=== PATIENT | female | born 1940 | race Caucasian/White ===

== ENCOUNTER 2021-05-21 03:21 | Emergency (ER) | payer MEDICARE, SELFPAY ==
--- NOTE | ~2021-05-21 | CT_ITS ---
EXAMINATION: CT abdomen pelvis w con DATE: 05/21/2021 04:25 INDICATION: Abdominal pain TECHNIQUE: Computed tomography (CT) of the abdomen and pelvis was performed with 100 cc Omnipaque 350 intravenous contrast. Automated exposure control and iterative reconstruction technique were employe d. Exam dose: 970.33 mGy-cm total exam DLP. COMPARISON: 07/01/2019 CT abdomen pelvis noncontrast examination FINDINGS: Chronic bilateral lower lobe atelectasis or more likely scarring. Chronic lingular and left lower lobe bronchiectasis. Cardiomegaly. No pericardial or pleural effusion. Moderately large hiatal hernia. Hepatic and splenic calcified granulomas consistent with old granulomatous disease. No hepatic or spl enic space-occupying mass lesion. The gallbladder is present. No bile duct dilatation is evident. No pancreatic mass lesion or calcification is evident. The adrenal glands are unremarkable. Proximal right ureteral 3 mm calculus with moderate right hydronephrosis as a result. Prominent left lower pole nephrolithiasis. 3.8 cm left lower pole exophytic renal cyst. 8 mm upper po le left renal cyst. No left ureteral calculus or left hydronephrosis. Bilateral approximately 3.2 x 4 cm ovarian or adnexal cysts. Probable posterior to centimeter uterine fibroid. There is extensive diverticulosis of the sigmoid colon; no CT evidence of diverticulitis. No bowel ob struction, bowel wall thickening, pneumatosis or intraperitoneal free air. There is calcification and tortuosity of the abdominal aorta but no abdominal aortic aneurysm. No intraperitoneal or retroperitoneal or pelvic mass lesion or adenopathy or ascites is detected. Dextroscoliosis and prominent degenerative change of the lumbar spine. Prominent degenerative spurrin g of the lower thoracic spine. IMPRESSION: 3 mm obstructing proximal right ureteral calculus with moderate right hydroureteronephro sis Left nephrolithiasis 3.8 cm lower pole exophytic left renal cyst and 8 mm upper pole left renal cyst Moderately large hiatal hernia Prominent sigmoid colon diverticulosis; no CT evidence of diverticulitis Cardiomegaly Chronic bilateral lower lobe atelectasis or more likely scarring, chronic lingular and left lower lob e bronchiectasis Reviewed, dictated and finalized at [facility]. Reviewed, dictated and finalized at [facility]. IMPRESSION: 3 mm obstructing proximal right ureteral calculus with moderate ri ght hydroureteronephrosis Left nephrolithiasis 3.8 cm lower pole exophytic left renal cyst and 8 mm upper pole left renal cyst Moderately large hiatal hernia Prominent sigmoid colon diverticulosis; no CT evidence of diverticulitis Cardiomegaly Chronic bilateral lower lobe atelectasis or more likely scarring, chronic lingu lar and left lower lobe bronchiectasis
[2021-05-21 03:26] VITALS: BP 161/75; PULSE 63; RESP 16; TEMP 36.8; O2SAT 98
--- NOTE | 2021-05-21 03:35 | ECG_ITS ---
Measurements Intervals [place] Rate: 58 P: 134 NH: 163 QRS: 136 QRSD: 132 T: 56 QT: 431 QTc: 427 Interpretive Statements SINUS BRADYCARDIA INTRAVENTRICULAR CONDUCTION DELAY BASELINE ARTIFACT- I, II, III, AVR, AVL, AVF, V1-V6 BORDERLINE ECG Electronically Signed On 05-21-2021 6:59:28 CDT by Jose Ramon Cartwright D.O.
[2021-05-21 03:52] LABS: Basophils Percent Auto 0.4 % (0.2-1.2); Eosinophils Absolute Auto 0.2 K/mm3 (0-0.3); Eosinophils Percent Auto 2.2 % (0-4.4); Hematocrit 46.1 % (37.0-47.0); Hemoglobin 14.6 g/dL (12.0-15.0); Immature Granulocyte Absolute 0.02 K/mm3 (0.00-0.031); Immature Granulocyte Percent A 0.3 % (0-0.5); Lymphocytes Absolute Auto 3.14 K/mm3 (0.9-3.2); Lymphocytes Percent Auto 42.3 % (18.3-44.2); Mean Corpuscular HGB Conc 31.7 g/dl (32-36); Mean Corpuscular Hemoglobin 30.6 pg (26-34); Mean Corpuscular Volume 96.6 fl (80-100); Mean Platelet Volume 10.4 fl (7.4-10.4); Monocytes Absolute Auto 0.8 K/mm3 (0.1-0.6); Monocytes Percent Auto 10.2 % (2.6-8.5); Neutrophils Absolute Auto 3.3 K/mm3 (1.3-6.7); Neutrophils Percent Auto 44.6 % (45.5-73.1); Platelet Count Result 202 k/mm3 (150-375); Red Blood Count 4.77 M/mm3 (4.2-5.4); Red Cell Distribution Width 14.4 % (11.5-14.5); White Blood Count 7.4 K/mm3 (4.5-10.0)
--- NOTE | 2021-05-21 03:53 | ED.GENADULT ---
HPI - General Adult General Chief complaint: Abdominal Pain Stated complaint: abd pain Time Seen by Provider: 05/21/21 03:31 History of Present Illness HPI narrative: Patient 80-year-old female presents emerged department chief complaint of abdominal pain patient reports that she is having pain in the right side of her abdomen reports this is been going on for several days. Patient reports she is had some diarrhea with this denies fever denies vomiting denies chest pain denies shortness of breath. Patient reports that it is intermittent reports that its not worsened by anything or is it improved by anything. Related Data Allergies Allergy/AdvReac Type Severity Reaction Status Date / Time No Known Allergies Allergy Verified 05/21/21 04:23 Review of Systems Review of Systems: Narrative: A 10 system review of systems was completed on the patient and is negative except for what is stated in the HPI. Nursing and ancillary documentation was reviewed. [facility] Family History Family History Father Family history of emphysema Cerebrovascular accident, Onset Age: 78 Patient's father is Sibling Patient's sister is in good health Patient's brother is in good health Mother Family history of kidney disease Family history of renal failure, Onset Age: 77 Grandparent Diabetes mellitus Social History Social History Alcohol intake: never Comments Past medical history significant for kidney stones Patient denies intra-abdominal surgery history Exam Narrative: Exam Narrative: GENERAL: Well-appearing, well-nourished, and in no acute distress. HEAD: Normocephalic, atraumatic. EYES: PERRLA and EOMI. ENT: Nares clear, no rhinorrhea or epistaxis. Mucous membranes moist. NECK: Supple. CHEST: Clear to auscultation. No respiratory distress. HEART: Regular rate and rhythm. No murmur heard. Normal peripheral pulses. ABDOMEN: Soft, tenderness to palpation in the right upper and right lower quadrant, nondistended, normal active bowel sounds. EXTREMITIES: Normal range of motion. No edema. SKIN: Warm, dry, no rash. NEURO: No focal deficits. Alert and oriented x3. PSYCH: Normal mood and affect. Course Vital Signs Vital signs: Vital Signs Temperature 36.8 C 05/21/21 03:26 Pulse Rate 63 05/21/21 03:26 Respiratory Rate 16 05/21/21 03:26 Blood Pressure 161/75 H 05/21/21 03:26 Pulse Oximetry 98 05/21/21 03:26 Temperature 36.8 C 05/21/21 03:26 Pulse Rate 54 L 05/21/21 07:05 Respiratory Rate 18 05/21/21 07:05 Blood Pressure 101/52 L 05/21/21 07:05 Pulse Oximetry 93 05/21/21 07:05 Medical Decision Making Vital Signs Vital Signs: Vital Signs Temperature 36.8 C 05/21/21 03:26 Pulse Rate 63 05/21/21 03:26 Respiratory Rate 16 05/21/21 03:26 Blood Pressure 161/75 H 05/21/21 03:26 Pulse Oximetry 98 05/21/21 03:26 Temperature 36.8 C 05/21/21 03:26 Pulse Rate 54 L 05/21/21 07:05 Respiratory Rate 18 05/21/21 07:05 Blood Pressure 101/52 L 05/21/21 07:05 Pulse Oximetry 93 05/21/21 07:05 Lab Data Result diagrams: 05/21/21 03:42 05/21/21 03:42 Labs: Lab Results 05/21/21 05/21/21 05/21/21 Range/Units 03:42 03:42 03:42 WBC 7.4 (4.5-10.0) K/mm3 RBC 4.77 (4.2-5.4) M/mm3 Hgb 14.6 (12.0-15.0) g/dL Hct 46.1 (37.0-47.0) % MCV 96.6 (80-100) fl MCH 30.6 (26-34) pg MCHC 31.7 L (32-36) g/dl RDW 14.4 (11.5-14.5) % Plt Count 202 (150-375) k/mm3 MPV 10.4 (7.4-10.4) fl Immature Gran % (Auto) 0.3 (0-0.5) % Neut % (Auto) 44.6 L (45.5-73.1) % Lymph % (Auto) 42.3 (18.3-44.2) % [place] % (Auto) 10.2 H (2.6-8.5) % Eos % (Auto) 2.2 (0-4.4) % Baso % (Auto) 0.4 (0.2-1.2) % Lymph # (Auto) 3.14 (0.9-3.2) K/mm3 [place] # (Auto) 0.8
[2021-05-21] MEDS: ONDANSETRON INJ 4 MG/2 ML VIAL IV PUSH (03:57)
[2021-05-21] MEDS: MORPHINE SULFATE (*CRX) 4 MG/ML INJ IV PUSH (03:57)
[2021-05-21] MEDS: SODIUM CHLORIDE 0.9% IV 1,000 ML 999 ML IV CONT (03:58)
[2021-05-21 04:09] LABS: Alanine Aminotransferase 10 U/L (4-35); Albumin Level 4.1 g/dL (3.5-5.1); Alkaline Phosphatase 80 U/L (38-126); Anion Gap 5 mmol/L (8-16); Aspartate Amino Transferase 26 U/L (14-36); Bilirubin,Total 0.9 mg/dL (0.2-1.3); Blood Urea Nitrogen 16 mg/dL (7-17); Calcium 9.8 mg/dL (8.4-10.2); Carbon Dioxide 32 mmol/L (22-30); Chloride 102 mmol/L (98-107); Estimated CRCL calculation 40 ml/min; Estimated Glomerular Filt Rate 60; Glucose 105 mg/dL (65-105); Lipase 163 U/L (23-300); Potassium 3.5 mmol/L (3.4-5.0); Sodium 139 mmol/L (137-145)
[2021-05-21 04:40] VITALS: BP 131/60; PULSE 76; RESP 16; O2SAT 97
[2021-05-21 05:31] LABS: Add Urine Microscopic? YES; Appearance Urine Cloudy (Clear); Bilirubin Urine Negative (Negative); Blood Urine 3+ (Negative); Color Urine Amber (Yellow); Glucose Urine UA Negative (Negative); Ketones Urine Negative (Negative); Leukocyte Esterase Ur Trace LEU/UL (Negative); Mucus Urine Few /lpf; Nitrate Urine Negative (Negative); Protein Urine 2+ mg/dL (Negative); RBC Urine >75 /hpf (0-2); Squamous Epithelial Cell Urine Rare /hpf (Few); Urobilinogen Urine Negative mg/dL (<2.0); WBC Urine 31-50 /hpf
[2021-05-21 06:06] VITALS: BP 109/47; PULSE 60; RESP 20; O2SAT 92
[2021-05-21 06:19] LABS: Troponin I < 0.012 ng/mL (0.000-0.034)
[2021-05-21 06:24] LABS: Lactic Acid Reflex 1.2 mmol/L (0.7-2.1)
[2021-05-21 07:05] VITALS: BP 101/52; PULSE 54; RESP 18; O2SAT 93
[2021-05-21 07:25] VITALS: BP 101/52; PULSE 56; RESP 17; O2SAT 92
== END 2021-05-21 07:26 | disposition home or self-care (01) ==
PROVIDERS: Emergency Provider Emergency Medicine; PCP Internal Medicine
DX: N20.0 Calculus of kidney (principal)
CPT/HCPCS: 36415; 51701; 74177; 80053; 81001; 83605; 83690; 84484; 85025; 87086; 93005; 96361; 96365; 96375; 99284; J0696; J2270; J2405; J7030; Q9967

== ENCOUNTER 2022-02-07 12:07 | Emergency (ER) | payer MEDICARE, SELFPAY ==
--- NOTE | ~2022-02-07 | XR_ITS ---
EXAMINATION: XR shoulder LT min 2V DATE: 02/07/2022 12:51 INDICATION: Left shoulder pain and decreased range of motion TECHNIQUE: AP internally and externally rotated, AP oblique externally rotated and transscapular Y vi ews of the left shoulder were obtained. COMPARISON: None FINDINGS: Oblique fracture at the lateral left clavicle with approximately 4 mm cephalad displacement of the me dial fragment. The fracture line extends to the inferior cortex near the expected footplate of the co racoclavicular ligament. No other fractures identified. Moderate osteoarthritis at the left glenohume ral and acromioclavicular joints. Old lateral left second and fourth rib fractures. Likely prominent kyphosis of the upper thoracic spine. Small calcified nodule at the left lower lung zone consistent w ith old granulomatous disease. IMPRESSION: 1. Mild displacement of and extra articular fracture at the lateral left clavicle. 2. 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 Reviewed, dictated and finalized at [facility]. IMPRESSION: 1. Mild displacement of and extra articular fracture at the lateral left clavic le. 2. 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
--- NOTE | ~2022-02-07 | XR_ITS ---
EXAMINATION: XR ankle LT min 3V DATE: 02/07/2022 12:50 INDICATION: Lateral left ankle pain post fall TECHNIQUE: Anteroposterior, oblique, mortise, and lateral views of the left ankle were obtained. COMPARISON: None. FINDINGS: Old distal fibular and medial malleolar fractures, both with internal fixation and appearing healed i n essentially anatomic alignment. Couple small corticated heterotopic ossicles near the tip the media l malleolus. No acute fractures identified. Mild polyarticular osteoarthritis at the left ankle and m ultiple joints in the mid and hindfoot. Diffuse osteopenia. Small Achilles and plantar calcaneal spur s. No left ankle joint effusion. IMPRESSION: 1. Old healed internally fixed fractures of the medial malleolus and distal left fibula. No acute oss eous abnormality. Reviewed, dictated and finalized at [facility]. IMPRESSION: 1. Old healed internally fixed fractures of the medial malleolus and distal lef t fibula. No acute osseous abnormality.
[2022-02-07 12:14] VITALS: BP 114/48; PULSE 77; RESP 12; TEMP 36.9; O2SAT 98
--- NOTE | 2022-02-07 12:22 | ED.FALL ---
HPI - Fall General Chief Complaint: Fall Stated Complaint: INJURED L SHOULDER/L ANKLE Time Seen by Provider: 02/07/22 12:22 Source: patient, family, RN notes reviewed and old records reviewed Mode of arrival: ambulatory Limitations: no limitations History of Present Illness HPI Narrative: 81-year-old female accompanied by family members with complaints of fall when she was stepping up on steps about 30 minutes ago and landed on her left shoulder and hurt her lateral left ankle also. Family members state that patient did not hit her head or lose consciousness at time of fall. Patient is alert but very hard of hearing, denies any dizziness prior to fall states she lost her balance and fell. Patient is having a lot of pain to the AC joint area of her left shoulder with increase in pain if she attempts to move her left arm. Pain is also stated to the lateral aspect of her left ankle. Patient does reside with her daughter and son-in-law. MD complaint: fall Onset (ago): minute(s) (30) Fall from: standing Fall witnessed: yes, by family Place fall occurred: other (at family's member house) Loss of consciousness: none Symptoms prior to fall: none Context: other (lost her balance) Location of injury - extremities: Left: shoulder and ankle Severity: moderate Quality: sharp Related Data Home Medications Medication Instructions Recorded Confirmed apixaban [Eliquis] 5 mg PO DAILY 02/07/22 02/07/22 metoprolol tartrate 25 mg PO DAILY 02/07/22 02/07/22 montelukast 10 mg PO DAILY 02/07/22 02/07/22 Allergies Allergy/AdvReac Type Severity Reaction Status Date / Time No Known Allergies Allergy Other Uncoded 02/07/22 12:23 Review of Systems Review of Systems: CONSTITUTIONAL: Denies fever, chills, or sweats. EYES: Denies visual changes, redness, or discharge. ENT: Denies rhinorrhea, congestion, sore throat, or otalgia. CARDIOVASCULAR: Denies chest pain, palpitations, or edema. RESPIRATORY: Denies cough or dyspnea. GASTROINTESTINAL: Denies abdominal pain, nausea, vomiting, or diarrhea. GENITOURINARY: Denies dysuria or hematuria. SKIN: Denies rash or itching. MUSCULOSKELETAL: Denies back pain,positive for left shoulder pain and left lateral ankle joint pain, or myalgia. NEUROLOGIC: Denies headache, numbness, or weakness. PSYCHIATRIC: Denies anxiety or depression, is forgetful and very hard of hearing.. All systems reviewed & are unremarkable except as noted in HPI and below PMFSH Past Medical History Medical History (Updated 02/07/22 @ 17:04 by Nichelle Hendrickson NP) Afib on Eliquis Allergic sinusitis Bladder stones Hiatal hernia History of cardioversion Hypertension Kidney stone UTI (urinary tract infection) Surgical History Surgical History (Updated 02/07/22 @ 12:29 by Nichelle Hendrickson NP) History of ankle surgery ORIF with hardware 1996 History of cataract removal with insertion of prosthetic lens bilateral Family History Family History Father Family history of emphysema Cerebrovascular accident, Onset Age: 78 Patient's father is Sibling Patient's sister is in good health Patient's brother is in good health Mother Family history of kidney disease Family history of renal failure, Onset Age: 77 Grandparent Diabetes mellitus Social History Social History (Updated 02/07/22 @ 13:00 by Nichelle Hendrickson NP) Smoking status: Never smoker Alcohol intake: never Substance use: never Living arrangements: with family Occupation/Education: retired Gender identity (if verbalized by the patient): Female Comments At time of signature, agree with nursing past medical, surgical, social and family history. There is no relevant family history pertinent to the presenting complaint Exam Narrative: GENERAL: Frail-appearing, adequately-nourished, and in some acute distress due to pain in left shoulder region. HEAD: Normocephalic, atr
[2022-02-07 12:25] VITALS: BP 114/48; PULSE 77; RESP 12; TEMP 36.9; O2SAT 98
== END 2022-02-07 13:50 | disposition home or self-care (01) ==
PROVIDERS: Emergency Provider Registered Nurse; PCP Internal Medicine
DX: S42.032A Displaced fracture of lateral end of left clavicle, initial encounter for closed fracture (principal); W10.9XXA Fall (on) (from) unspecified stairs and steps, initial encounter; S93.402A Sprain of unspecified ligament of left ankle, initial encounter; I48.91 Unspecified atrial fibrillation; I10 Essential (primary) hypertension; Z79.01 Long term (current) use of anticoagulants
CPT/HCPCS: 73030; 73610; 99214; A4565; G0463

== ENCOUNTER 2022-02-08 18:19 | Observation (INO) | payer MEDICARE, SELFPAY ==
--- NOTE | 2022-02-08 19:34 | ADMGEN ---
This patient, Jade Herrera, was admitted to 2 Medical Room 256-. Patient/family oriented to hospital policies and general routines including ID bracelet, bed and alarms, visiting hours, pain management, procedures, bathroom and other care routines, personal items, smoking policy, room service/diet, and visiting hours. Information on how to activate the Rapid Response Team has been discussed. Patient/Family are encouraged to report perceived risks to care and to ask questions if they do not understand what they are told or what they should do.
--- NOTE | 2022-02-08 19:45 | PM.IMHP ---
H&P: HPI History of Present Illness Date/Time: 02/08/22 19:45 Chief Complaint: Left clavicle and suspected occult left foot fracture. Narrative: This is an 81-year-old female with paroxysmal atrial fibrillation on chronic anticoagulation who is being directly admitted to the medical floor from Dr. Stone's office as she is unable to get around at home after sustaining a left clavicular and presumed occult left foot fracture. Yesterday morning she was attempting to go up a step when she tripped and fell onto her left side. She denied antecedent symptoms prior to the fall and states it was purely mechanical fall though she goes on to say that she has been having increasing problems with her balance to the point that her children are now making her ambulate with a cane. She was seen at a local [facility] at which time imaging showed mild displacement of an extra-articular fracture at the left lateral clavicle; left ankle imaging showed no acute findings. She saw Dr. Stone in the office today in follow-up and she was placed in a sling and in a Darco shoe. She is not to place any weight on the left hand/arm whatsoever and she is to use only partial weight on her left foot with transferring only. Due to these restrictions it is felt that she would benefit from rehab placement as family members are unable to be with her consistently to ensure she follows these directions. At the time my evaluation she is resting comfortably, watching television, and she has no specific complaints. Review of Systems Review of Systems: Twelve systems were reviewed. She denies head trauma and loss of consciousness in the fall. No lightheadedness or dizziness prior to the fall. She has not had chest pain, pleuritic pain, palpitations, or shortness of breath. Appetite has been good. No nausea, vomiting, diarrhea, or dysuria. Except as documented, all other systems were reviewed and are negative. [facility] Past Medical History Medical History (Updated 02/08/22 @ 22:47 by Sandi Vargas PA-C) Allergic sinusitis Arthritis Bladder stones Hiatal hernia Hypertension Kidney stone Paroxysmal atrial fibrillation Status post cardioversion. On Eliquis for stroke prophylaxis. Surgical History Surgical History (Updated 02/08/22 @ 23:19 by Sandi Vargas PA-C) History of ankle surgery (1996) ORIF left ankle fracture with hardware. History of benign breast biopsy History of cataract extraction with lens replacement History of cystoscopy (08/2019) Holmium laser of bladder calculus. History of dilation and curettage History of hysteroscopy Resection of benign cystic endometrial polyp. Family History Family History Father Family history of emphysema Cerebrovascular accident, Onset Age: 78 Patient's father is Sibling Patient's sister is in good health Patient's brother is in good health Mother Family history of kidney disease Family history of renal failure, Onset Age: 77 Grandparent Diabetes mellitus Social History Social History (Updated 02/08/22 @ 22:46 by Sandi Vargas PA-C) Social History: Surrogate decision maker: Grtea or Lynne Fountain, fiorella. Code status: Full code. Smoking status: Never smoker Alcohol intake: never Substance use: never Living arrangements: with family Occupation/Education: retired Spiritual care concerns: No Meds Home Medications and Allergies Home Medications Medication Instructions Recorded Confirmed Type apixaban [Eliquis] 5 mg PO DAILY 02/07/22 02/07/22 History metoprolol tartrate 25 mg PO DAILY 02/07/22 02/07/22 History montelukast 10 mg PO DAILY 02/07/22 02/07/22 History hydrocodone-acetaminophen 1 tablet PO Q6H PRN 02/08/22 02/08/22 History Allergies Allergy/AdvReac Type Severity Reaction Status Date / Time No Known Allergies Allergy Other Uncoded 02/07/22 12:23 Vital Signs Vital Signs -
[2022-02-08 20:11] LABS: Magnesium 2.1 mg/dL (1.6-2.3)
[2022-02-08 21:54] VITALS: BMI 22.7
[2022-02-08 22:00] VITALS: BP 125/49; PULSE 69; RESP 18; TEMP 36.2; O2SAT 97
[2022-02-09] MEDS: HYDROcodone/acetaminophen (*CRX) 5-325 MG TABLET 1 TAB PO ×4 (00:04→19:59)
[2022-02-09 06:00] VITALS: BP 113/52; PULSE 69; RESP 18; TEMP 36.2; O2SAT 97
[2022-02-09 06:01] LABS: Basophils Percent Auto 0.4 % (0.2-1.2); Eosinophils Absolute Auto 0.1 K/mm3 (0-0.3); Eosinophils Percent Auto 1.6 % (0-4.4); Hematocrit 39.4 % (37.0-47.0); Hemoglobin 13.3 g/dL (12.0-15.0); Immature Granulocyte Absolute 0.02 K/mm3 (0.00-0.031); Immature Granulocyte Percent A 0.3 % (0-0.5); Lymphocytes Absolute Auto 1.57 K/mm3 (0.9-3.2); Lymphocytes Percent Auto 22.8 % (18.3-44.2); Mean Corpuscular HGB Conc 33.8 g/dl (32-36); Mean Corpuscular Hemoglobin 31.5 pg (26-34); Mean Corpuscular Volume 93.4 fl (80-100); Mean Platelet Volume 10.6 fl (7.4-10.4); Monocytes Absolute Auto 1.1 K/mm3 (0.1-0.6); Monocytes Percent Auto 16.4 % (2.6-8.5); Neutrophils Percent Auto 58.5 % (45.5-73.1); Platelet Count Result 226 k/mm3 (150-375); Red Blood Count 4.22 M/mm3 (4.2-5.4); Red Cell Distribution Width 14.4 % (11.5-14.5); White Blood Count 6.9 K/mm3 (4.5-10.0)
--- NOTE | 2022-02-09 06:24 | PM.CNOR ---
Assessment and Plan Additional Plan Patient is an 81-year-old female that I saw in the office yesterday. The day before she had fallen onto her left side. She presented to a local urgent care complaining of left shoulder and left ankle pain. X-rays left shoulder showed a mildly displaced distal clavicle shaft fracture just lateral to the coracoclavicular ligament attachment and x-rays of her left ankle showed residuals of open reduction internal fixation of a bimalleolar ankle fracture that I performed proximally 20 years ago. There is a 10 hole side plate on fibular shaft and 2 screws in the medial malleolus. No significant degenerative changes seen in the ankle joint. On examination in the office yesterday she had severe tenderness actually over the lateral surface of the cuboid moderate tenderness over the dorsum of the bases of the 4th and 5th metatarsals. We obtained x-rays of her foot which showed no definite fracture but osteopenia/ osteoporosis was seen. She had no tenderness about the ankle itself. My clinical impression is that it is probable that she has an occult nondisplaced fracture of the cuboid based on her severe tenderness in that location without external bruising visible. As such she was placed and a Darco shoe. The patient is son and [id number] with whom she lives were up all night night before. Mrs. Long has confusion and memory loss and she could not be compelled to not get out of bed by herself and then she would cry out with severe pain. Her son feels that it is not safe for her to be at home and therefore patient will need to be evaluated for placement into a jail facility. Treatment for left distal clavicle fracture will be in a sling treatment for the left suspected nondisplaced cuboid fracture on the left will be in the Darco shoe with light partial weight-bearing so she should be restricted transfers only and will need assistance with each and every transfer. Case coordination is looking into rehab placement at this time. I will see her back in 2 weeks. History of Present Illness HPI Consult date: 02/09/22 Chief complaint: FX LT CLAVICLE LT .FOOT FX PMFSH Past Medical History Medical History (Updated 02/08/22 @ 23:19 by Sandi Vargas PA-C) Allergic sinusitis Arthritis Bladder stones Hiatal hernia Hypertension Kidney stone Paroxysmal atrial fibrillation Status post cardioversion. On Eliquis for stroke prophylaxis. Surgical History Surgical History (Updated 02/08/22 @ 23:19 by Sandi Vargas PA-C) History of ankle surgery (1996) ORIF left ankle fracture with hardware. History of benign breast biopsy History of cataract extraction with lens replacement History of cystoscopy (08/2019) Holmium laser of bladder calculus. History of dilation and curettage History of hysteroscopy Resection of benign cystic endometrial polyp. Family History Family History Father Family history of emphysema Cerebrovascular accident, Onset Age: 78 Patient's father is Sibling Patient's sister is in good health Patient's brother is in good health Mother Family history of kidney disease Family history of renal failure, Onset Age: 77 Grandparent Diabetes mellitus Social History Social History (Updated 02/08/22 @ 22:46 by Sandi Vargas PA-C) Social History: Surrogate decision maker: Greta or Lynne Fountain, daughters. Code status: Full code. Smoking status: Never smoker Alcohol intake: never Substance use: never Living arrangements: with family Occupation/Education: retired Spiritual care concerns: No Meds Home Medications and Allergies Home Medications Medication Instructions Recorded Confirmed Type apixaban [Eliquis] 5 mg PO DAILY 02/07/22 02/08/22 History metoprolol tartrate 25 mg PO DAILY 02/07/22 02/08/22 History montelukast 10 mg PO DAILY 02/07/22
[2022-02-09 06:32] LABS: Anion Gap 4 mmol/L (8-16); Blood Urea Nitrogen 27 mg/dL (7-17); Calcium 8.9 mg/dL (8.4-10.2); Carbon Dioxide 30 mmol/L (22-30); Chloride 100 mmol/L (98-107); Estimated CRCL calculation 49 ml/min; Estimated Glomerular Filt Rate > 60; Glucose 101 mg/dL (65-110); Potassium 3.5 mmol/L (3.4-5.0); Sodium 134 mmol/L (137-145)
[2022-02-09 08:08] VITALS: PULSE 100
[2022-02-09] MEDS: METOPROLOL TARTRATE 12.5 MG TABLET PO ×2 (08:08→19:59)
[2022-02-09] MEDS: MONTELUKAST SODIUM 10 MG TABLET PO (08:09)
[2022-02-09] MEDS: APIXABAN 5 MG TABLET PO ×2 (08:10→19:59)
--- NOTE | 2022-02-09 13:59 | PM.IMPN ---
Progress Note: A&P Assessment and Plan (1) Fracture of left clavicle: Code(s): S42.002A - Fracture of unspecified part of left clavicle, initial encounter for closed fracture Status: Acute Assessment and Plan: She was placed in a sling and per Dr. Stone she is to not bear any weight on her left hand/arm whatsoever. Given these limitations in addition to limitations at home (patient lives in a trilevel home and ambulates with a cane) she is being admitted for care including PT/OT evaluation. She will need to go to rehab before returning home as she will not be safe to discharge home in her condition. (2) Occult fracture: Status: Acute Assessment and Plan: Dr. Stone suspect an occult fracture of the left foot and he wants the patient to be in a Darco shoe. She is only to place partial weight on that left foot with transferring only. Again, given the limitations she will need to go to rehab before returning home. PT/OT consulted. Initiate fall precautions. (3) Paroxysmal atrial fibrillation: Code(s): I48.0 - Paroxysmal atrial fibrillation Status: Acute Assessment and Plan: Currently sounds to be in a normal rhythm. Continue metoprolol and apixaban for stroke prophylaxis. Subjective Date/time seen: 02/09/22 13:59 Interval history: HPI:This is an 81-year-old female with paroxysmal atrial fibrillation on chronic anticoagulation who is being directly admitted to the medical floor from Dr. Stone's office as she is unable to get around at home after sustaining a left clavicular and presumed occult left foot fracture. Yesterday morning she was attempting to go up a step when she tripped and fell onto her left side. She denied antecedent symptoms prior to the fall and states it was purely mechanical fall though she goes on to say that she has been having increasing problems with her balance to the point that her children are now making her ambulate with a cane. She was seen at a local [facility] at which time imaging showed mild displacement of an extra-articular fracture at the left lateral clavicle; left ankle imaging showed no acute findings. She saw Dr. Stone in the office today in follow-up and she was placed in a sling and in a Darco shoe. She is not to place any weight on the left hand/arm whatsoever and she is to use only partial weight on her left foot with transferring only. Due to these restrictions it is felt that she would benefit from rehab placement as family members are unable to be with her consistently to ensure she follows these directions. At the time my evaluation she is resting comfortably, watching television, and she has no specific complaints. 02/09/2022 hard of hearing. Denies any pain. No other complaints today. Discussed with the nursing staff Review of Systems Review of Systems: All systems reviewed & are unremarkable except as noted in HPI and below (HPI) Exam Narrative: General: Well-developed elderly female sitting up in bed in no distress. She is very hard of hearing. HEENT: Normocephalic, atraumatic. PERRL, EOMI. Sclerae anicteric. Oral mucosa moist. Oropharynx clear. Neck: Supple. Respiratory: Lungs are clear to auscultation bilaterally. Cardiovascular: Regular rate and rhythm with S1-S2. Occasional ectopy. Gastrointestinal: Abdomen is soft, nontender, and nondistended with positive bowel sounds. Skin: Warm and dry. No rash or lesions on limited exam. Extremities: No cyanosis, clubbing, or significant edema. Radial and pedal pulses intact. Musculoskeletal: Left arm is in a sling. Left foot is in a Darco shoe. These were not removed for exam. Neurological: Alert. Cranial nerves 2-12 are grossly intact. She is very hard of hearing. No gross focal deficits to casual conversation. Psychiatric: Pleasant and cooperative with normal mood and affect. Seems to have mild short-term memory loss. Objective Data Vital Signs Vital Signs: Vital Signs
[2022-02-09 14:00] VITALS: BP 114/57; PULSE 79; RESP 14; TEMP 36.6; O2SAT 96
[2022-02-09 19:59] VITALS: PULSE 76
[2022-02-09 20:50] VITALS: BP 110/49; PULSE 70; RESP 16; TEMP 36.8; O2SAT 93
[2022-02-10 04:39] VITALS: BP 123/69; PULSE 76; RESP 14; TEMP 37.1; O2SAT 93
[2022-02-10] MEDS: METOPROLOL TARTRATE 12.5 MG TABLET PO (08:27)
[2022-02-10] MEDS: MONTELUKAST SODIUM 10 MG TABLET PO (08:27)
[2022-02-10] MEDS: APIXABAN 5 MG TABLET PO (08:27)
[2022-02-10] MEDS: HYDROcodone/acetaminophen (*CRX) 5-325 MG TABLET 1 TAB PO (08:28)
[2022-02-10 14:00] VITALS: BP 110/58; PULSE 61; RESP 24; TEMP 36.9; O2SAT 95
--- NOTE | 2022-02-10 14:42 | PM.DS ---
DS: Admitting Diagnosis Discharge Date 02/10/2022 Admitting Diagnosis Left clavicle and suspected occult left foot fracture. DS: Discharge Diagnosis Discharge Diagnosis (1) Fracture of left clavicle: Code(s): S42.002A - Fracture of unspecified part of left clavicle, initial encounter for closed fracture Status: Acute Assessment and Plan: She was placed in a sling and per Dr. Stone she is to not bear any weight on her left hand/arm whatsoever. Given these limitations in addition to limitations at home (patient lives in a trilevel home and ambulates with a cane) she is being admitted for care including PT/OT evaluation. She will need to go to rehab before returning home as she will not be safe to discharge home in her condition. (2) Occult fracture: Status: Acute Assessment and Plan: Dr. Stone suspect an occult fracture of the left foot and he wants the patient to be in a Darco shoe. She is only to place partial weight on that left foot with transferring only. Again, given the limitations she will need to go to rehab before returning home. PT/OT consulted. Initiate fall precautions. (3) Paroxysmal atrial fibrillation: Code(s): I48.0 - Paroxysmal atrial fibrillation Status: Acute Assessment and Plan: Currently sounds to be in a normal rhythm. Continue metoprolol and apixaban for stroke prophylaxis. DS: Summary Hospital Course Reason for hospitalization: Chief Complaint: Left clavicle and suspected occult left foot fracture. Narrative: This is an 81-year-old female with paroxysmal atrial fibrillation on chronic anticoagulation who is being directly admitted to the medical floor from Dr. Stone's office as she is unable to get around at home after sustaining a left clavicular and presumed occult left foot fracture. Yesterday morning she was attempting to go up a step when she tripped and fell onto her left side. She denied antecedent symptoms prior to the fall and states it was purely mechanical fall though she goes on to say that she has been having increasing problems with her balance to the point that her children are now making her ambulate with a cane. She was seen at a local [facility] at which time imaging showed mild displacement of an extra-articular fracture at the left lateral clavicle; left ankle imaging showed no acute findings. She saw Dr. Stone in the office today in follow-up and she was placed in a sling and in a Darco shoe. She is not to place any weight on the left hand/arm whatsoever and she is to use only partial weight on her left foot with transferring only. Due to these restrictions it is felt that she would benefit from rehab placement as family members are unable to be with her consistently to ensure she follows these directions. At the time my evaluation she is resting comfortably, watching television, and she has no specific complaints. Hospital Course: She was placed in a sling and per Dr. Stone she is to not bear any weight on her left hand/arm whatsoever. Given these limitations in addition to limitations at home (patient lives in a trilevel home and ambulates with a cane) she is being admitted for care including PT/OT evaluation. She will need to go to rehab before returning home as she will not be safe to discharge home in her condition. patient is clinically stable, will discharge patient to rehab today Status at Discharge Functional status at discharge: uses cane/walker Time Spent with Patient Time attestation: Total time spent providing and/or coordinating discharge services: Time spent: Greater than 30 minutes Exam Narrative: Patient is comfortable, NAD HEENT: eyes are clear and none icteric, LUNGS: normal respiratory effort ABD: distended Lower extremities: edema SKIN: nonjaundiced Neuro: grossly intact. Discharge Plan Discharge Attending physician on discharge: Boaz Rayo Consulting providers: Luis Fernando Stone ; Sandi Vargas
[2022-02-10 15:51] LABS: EDCOVIDSCREEN Negative (Negative)
== END 2022-02-10 16:16 ==
PROVIDERS: Physician Assistant; Admitting Provider Family Medicine; PCP Internal Medicine; Visit Provider Family Medicine
DX: S42.032A Displaced fracture of lateral end of left clavicle, initial encounter for closed fracture (principal); M25.572 Pain in left ankle and joints of left foot; W19.XXXA Unspecified fall, initial encounter; Z20.822 Contact with and (suspected) exposure to COVID-19; H91.90 Unspecified hearing loss, unspecified ear; I10 Essential (primary) hypertension; I48.91 Unspecified atrial fibrillation; Z79.01 Long term (current) use of anticoagulants; Z98.49 Cataract extraction status, unspecified eye; Z96.1 Presence of intraocular lens
CPT/HCPCS: 36415; 80048; 83735; 85025; 87426; 97110; 97161; 97165; 97530; 97535; A9270; C9803; G0378

== ENCOUNTER 2025-05-10 09:38 | Outpatient (CLI) | payer MEDICARE, SELFPAY ==
--- NOTE | ~2025-05-10 | US_ITS ---
US venous doppler [facility] - 05/10/2025 10:16 CDT History: 84 years old Female with left lower extremity pain and swelling. Real-time sonographic images of the left lower extremity venous system were obtained. Color Doppler sonography and spectral waveform analysis were performed. No prior studies for comparison. The left sapheno-femoral junctions are patent. The left common femoral, superficial femoral, poplit eal and posterior tibial veins are compressible and without evidence of echogenic thrombus. Impression: No evidence of deep venous thrombosis Reviewed, dictated and finalized at location A. Impression: No evidence of deep venous thrombosis
== END 2025-05-10 09:39 | disposition home or self-care (01) ==
PROVIDERS: PCP Internal Medicine; Visit Provider Orthopaedic Surgery
DX: M79.89 Other specified soft tissue disorders (principal)
CPT/HCPCS: 93971